=== PATIENT | female | born 1995 | race Caucasian/White ===

== ENCOUNTER 2024-12-05 19:31 | Emergency (ER) | payer SELFPAY ==
[2024-12-05] MEDS: Take Home: oxyCODONE HCl 5 MG Tab, 5 Tab Pack PO ONE (20:47)
== END 2024-12-05 21:06 | disposition home or self-care (01) ==
LOC: LL.ED 19:31
DX: S43.51XD Sprain of right acromioclavicular joint, subsequent encounter (principal); E66.9 Obesity, unspecified; Z68.36 Body mass index [BMI] 36.0-36.9, adult; Z90.710 Acquired absence of both cervix and uterus; Z88.6 Allergy status to analgesic agent; Z91.048 Other nonmedicinal substance allergy status; V18.0XXA Pedal cycle driver injured in noncollision transport accident in nontraffic accident, initial encounter
CPT/HCPCS: 99283; A9270-GY